=== PATIENT | female | born 1975 | race Caucasian/White ===

== ENCOUNTER 2022-11-04 11:58 | Outpatient (CLI) | payer BC | END 2022-11-04 11:59 | disposition home or self-care (01) | LOC: CSHCT 11:58 | PROVIDERS: ATTEND Family Medicine | DX: E78.5 Hyperlipidemia, unspecified (principal); R61 Generalized hyperhidrosis | CPT/HCPCS: 93306 ==

== ENCOUNTER 2022-12-05 12:04 | Outpatient (CLI) | payer OTHER | END 2022-12-05 12:05 | disposition home or self-care (01) | LOC: CSHCT 12:04 | PROVIDERS: ATTEND Family Medicine | DX: E78.5 Hyperlipidemia, unspecified (principal); R61 Generalized hyperhidrosis | CPT/HCPCS: 75571 ==

== ENCOUNTER 2023-12-07 07:54 | Outpatient (CLI) | payer BC ==
[2023-12-07 08:42] LABS: BHCG - Serum Negative (NEGATIVE); Pregs Control Background? CLEAR/WHITE (CLR/WHITE); Pregs Control Bar Appear? YES (CONTROL BAR)
[2023-12-07 08:48] LABS: Hematocrit 41.6 % (34.9-44.5)
== END 2023-12-07 07:55 | disposition home or self-care (01) ==
LOC: CSHLAB 07:54
PROVIDERS: ATTEND Otolaryngology
DX: Z01.812 Encounter for preprocedural laboratory examination (principal); K21.9 Gastro-esophageal reflux disease without esophagitis; J35.3 Hypertrophy of tonsils with hypertrophy of adenoids
CPT/HCPCS: 84703; 85014

== ENCOUNTER 2023-12-10 06:53 | Observation (INO) | payer BC ==
[2023-12-07 08:18] VITALS: BMI 33.1
[2023-12-10] MEDS ORDERED: Oxymetazoline HCl 0.05% ( 15 ML ) ONE (09:11)
[2023-12-10] MEDS ORDERED: Tranexamic Acid 1,000 MG/10 ML VIAL ONE (09:11)
[2023-12-10] MEDS ORDERED: Midazolam HCl 2 mg/2 ml Vial ONE (09:42)
[2023-12-10] MEDS ORDERED: Famotidine/PF 20 mg/2ml Vial ONE (09:42)
[2023-12-10] MEDS ORDERED: SUGAMMADEX SODIUM 200 MG/2 ML VIAL ONE (09:43)
[2023-12-10] MEDS ORDERED: Lidocaine 1% PF 5 ML VIAL ONE (09:43)
[2023-12-10] MEDS ORDERED: PROPOFOL 40 ML ONE (09:43)
[2023-12-10] MEDS ORDERED: Dexamethasone 4 mg/ml Vial ONE (09:43)
[2023-12-10] MEDS ORDERED: Ondansetron PF 4 MG/2 ML Vial ONE (09:43)
[2023-12-10] MEDS ORDERED: Rocuronium Bromide 10 MG/ML (10ML VIAL) ONE (09:43)
[2023-12-10] MEDS ORDERED: fentaNYL 50 mcg/mL 1 mL Vial ONE (09:44)
[2023-12-10] MEDS ORDERED: KETAMINE 100 MG/ML (5ML VIAL) ONE (09:44)
[2023-12-10] MEDS ORDERED: ePHEDrine Sulfate 50 MG/10 ML VIAL ONE (10:09)
[2023-12-10] MEDS ORDERED: Acetaminophen/Codeine 30-300mg Tablet PO PRN (12:50)
[2023-12-10] MEDS ORDERED: Ondansetron ODT 4 MG TAB PO PRN (12:51)
[2023-12-10] MEDS: Acetaminophen 325 MG TAB PO SCH ×2 (13:56→19:22)
[2023-12-10] MEDS: Ibuprofen 600 MG TAB PO SCH ×2 (16:38→21:51)
[2023-12-11] MEDS: Acetaminophen 325 MG TAB PO SCH ×2 (00:25→06:51)
[2023-12-11] MEDS: Ibuprofen 600 MG TAB PO SCH (04:06)
[2023-12-11 08:38] VITALS: TEMP 98.4
[2023-12-11 08:39] VITALS: BP 140/89
== END 2023-12-11 09:03 | disposition home or self-care (01) ==
LOC: CSHSDC 06:53 → CSHTELE 11:58
PROVIDERS: ADMIT Otolaryngology; ATTEND Otolaryngology
PROC: 0CTPXZZ Resection of Tonsils, External Approach (ICD-10-PCS; principal; 2023-12-10)
DX: J35.3 Hypertrophy of tonsils with hypertrophy of adenoids (principal); K21.9 Gastro-esophageal reflux disease without esophagitis; E11.9 Type 2 diabetes mellitus without complications; G47.33 Obstructive sleep apnea (adult) (pediatric); J45.909 Unspecified asthma, uncomplicated; Z88.0 Allergy status to penicillin; Z87.891 Personal history of nicotine dependence; Z79.84 Long term (current) use of oral hypoglycemic drugs; Z79.899 Other long term (current) drug therapy; Z90.49 Acquired absence of other specified parts of digestive tract
CPT/HCPCS: 88184; 88304; J1100; J2250; J2405; J2704; J3010; S0028